=== PATIENT | male | born 1975 | race Caucasian/White ===

== ENCOUNTER 2017-09-10 13:30 | Inpatient (IN) | payer OTHER ==
--- NOTE | 2017-09-08 20:45 | Pre-op HX & Phy Repo 2 SIG ---
DATE OF ADMISSION: 09/11/2017 REASON FOR EVALUATION: This patient is scheduled for surgery on September 11, 2017. CHIEF COMPLAINT: Abdominal pain. HISTORY OF PRESENT ILLNESS: This is a 41-year-old male, who presented with abdominal pain for about 6 months. The pain is located at the epigastrium with radiation to his back. This pain is associated with nausea, but no vomiting. Pain usually gets aggravated a few hours after eating, eating especially greasy food. He stated that the frequency has increased so that now he has the pain 2-3 times a week. Ultrasound had shown gallstone. PAST MEDICAL HISTORY: The patient denied allergies, asthma, diabetes, hypertension, cardiac or renal diseases. PAST SURGICAL HISTORY: Surgeries include repair of the tendon of right finger. MEDICATIONS: Include Rudolph. SOCIAL HISTORY: The patient is a 41-year-old male, who is and father of one child. 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 He denies smoking or drinking. REVIEW OF SYSTEMS: Noncontributory. PHYSICAL EXAMINATION: GENERAL: The patient appeared to be a well-developed, well-nourished, 41-year-old male in no acute distress. VITAL SIGNS: Blood pressure 103/76, pulse is 62. HEENT: Head is normocephalic and atraumatic. Eyes, pupils are equal, round, and reactive to light. Mouth is clear. NECK: There is no palpable thyromegaly or adenopathy. CHEST: Clear to auscultation and percussion. HEART: There is no gallop or murmur. S1 and S2 are within normal limits. ABDOMEN: Soft and flat, not tender. There is no palpable organomegaly. Bowel sounds are audible. GENITAL: Deferred. EXTREMITIES: Within normal limits. DIAGNOSTIC DATA: The ultrasound had shown gallstone located in the neck of the gallbladder. ASSESSMENT: Cholecystitis and cholelithiasis. PLAN: The patient had been scheduled for laparoscopic cholecystectomy, possible open cholecystectomy. The risks and benefits have been explained to him. He understood and granted consent. Emily Torres M.D. DR: Lor JOB#: [id number] CC: AMBROCIO
[~2017-09-10] VITALS: Ht 175.3 cm; Wt 75.3 kg
[2017-09-10] MEDS ORDERED: ZOFRAN4 M3 ORAL (15:21)
[2017-09-10] MEDS ORDERED: MULTIVITAMINS1 EAC2 ORAL (15:21)
[2017-09-10] MEDS ORDERED: LEVSIN-SL0.125 MG SL (15:21)
[2017-09-10] MEDS ORDERED: NORCO 5-325 TA1 EACH ORAL (15:21)
[2017-09-11] VITALS (15 sets, daily range): BP systolic 95–120; BP diastolic 56–79
[2017-09-11] MEDS ORDERED: ceFAZolin sod 1 GM in NS 55 ML IVPB SCH (07:00)
[2017-09-11] MEDS ORDERED: EPINEPHrine 1mg/1ml Amp ONE (11:10)
[2017-09-11] MEDS ORDERED: Iothalamate Meglumine 60% 30ML INJ ONE (11:11)
[2017-09-11] MEDS ORDERED: Bupivacaine 0.25% Inj 30ml INJ ONE (11:11)
[2017-09-11 11:20] LABS: BASOPHILS % (AUTO) 2.3 % (0.0-2.0); EOSINOPHILS % (AUTO) 4.6 % (0.0-3.0); HEMOGLOBIN 16.9 G/DL (14.2-18.0); MEAN CORPUSCULAR VOLUME 87 FL (80-99); MONOCYTES % (AUTO) 7.5 % (1.0-10.0); NEUTROPHILS % (AUTO) 47.6 % (45.0-75.0); PLATELET COUNT 189 K/UL (150-450); RED BLOOD COUNT 5.77 M/UL (4.70-6.10); RED CELL DISTRIBUTION WIDTH 10.4 % (11.6-14.8)
[2017-09-11 11:51] LABS: ALANINE AMINOTRANSFERASE 17 U/L (12-78); ALBUMIN 4.1 G/DL (3.4-5.0); ALBUMIN/GLOBULIN RATIO 1.2 (1.0-2.7); ALKALINE PHOSPHATASE 71 U/L (46-116); ANION GAP 14 mmol/L (5-15); ASPARTATE AMINO TRANSFERASE 21 U/L (15-37); BILIRUBIN,TOTAL 0.5 MG/DL (0.2-1.0); CARBON DIOXIDE 23 MMOL/L (21-32); CHLORIDE 104 MMOL/L (98-107); POTASSIUM 4.2 MMOL/L (3.5-5.1); SODIUM 140 MMOL/L (136-145)
[2017-09-11 11:56] LABS: BLOOD UREA NITROGEN 12 mg/dL (7-18)
[2017-09-11] MEDS ORDERED: Midazolam 2mg/2ml Inj ONE (12:09)
[2017-09-11] MEDS ORDERED: fentaNYL 100 mcg/2 mL IV ONE (12:09)
[2017-09-11] MEDS ORDERED: Propofol 200mg/20ml IV ONE (12:20)
[2017-09-11] MEDS ORDERED: Lidocaine 1% MPF 10mg/ml 5ml ONE (12:20)
[2017-09-11] MEDS ORDERED: Zemuron 50mg/5ml Inj IV ONE (13:24)
[2017-09-11] MEDS ORDERED: LR 1000ml ONE (13:30)
[2017-09-11] MEDS ORDERED: Sterile Water Irrig 1000ml IRRIG ONE (13:30)
[2017-09-11] MEDS ORDERED: Succinylcholine 20mg/ml 10ml vial ONE (13:30)
[2017-09-11] MEDS ORDERED: NS Irrig 1000ml ONE (13:30)
[2017-09-11] MEDS ORDERED: Ketorolac 30mg Inj ONE (13:30)
--- NOTE | 2017-09-11 13:31 | Pre-Procedure Note/Attestation ---
Pre-Procedure Note/Attestation Complete Prior to Procedure Planned Procedure: not applicable Procedure Narrative: laparoscopic cholecystectomy possible open cholecystectomy Indications for Procedure Pre-Operative Diagnosis: cholecystitis & cholelithiasis Attestation I attest that I discussed the nature of the procedure; its benefits; risks and complications; and alternatives (and the risks and benefits of such alternatives ), prior to the procedure, with the patient (or the patient's legal customer retention representative). I attest that, if there was a reasonable possibility of needing a blood transfusion, the patient (or the patient's legal customer retention representative) was given the [facility] standardized written summary, pursuant to the Minh Keisha Blood Safety Act ([place] Health and Safety Code # 1645, as amended). I attest that I re-evaluated the patient just prior to the surgery and that there has been no change in the patient's H&P, except as documented below: Emily Torres MD Sep 11, 2017 13:31
[2017-09-11] MEDS ORDERED: LR 1000ml 1,000 ML IVLG SCH (14:16)
--- NOTE | 2017-09-11 14:16 | Anethesia Preoperative Eval ---
Anesthesia Pre-op PMH/ROS General Date of Evaluation: Sep 11, 2017 Time of Evaluation: 13:16 Anesthesiologist: Lima ASA Score: ASA 2 Mallampati Score Class I : Soft palate, uvula, fauces, pillars visible Class II: Soft palate, uvula, fauces visible Class III: Soft palate, base of uvula visible Class IV: Only hard plate visible Mallampati Classification: Class II Surgeon: Brian Diagnosis: Symptomatic cholelithiasis Surgical Procedure: Laparoscopic cholecystectomy Anesthesia History: none Family History: no anesthesia problems Allergies: Coded Allergies: No Known Allergies (Unverified , 09/10/17) Medications: see eMAR Past Medical History Cardiovascular: Denies: HTN, CAD, AL, valve dz, arrhythmia, other Pulmonary: Denies: asthma, COPD, JOSE MARTIN, other Gastrointestinal/Genitourinary: Reports: GERD, other - recurrent abdominal pain ; Denies: CRI, ESRD Neurologic/Psychiatric: Denies: dementia, CVA, depression/anxiety, TIA, other Endocrine: Denies: DM, hypothyroidism, steroids, other HEENT: Denies: cataract (L), cataract (R), glaucoma, [place] (L), [place] (R), other Hematology/Immune: Denies: anemia, DVT, bleeding disorder, other Musculoskeletal/Integumentary: Denies: OA, RA, DJD, DDD, edema, other PMH Narrative: recurrent abdominal pain nausea PSxH Narrative: Finger tendon repair Anesthesia Pre-op Phys. Exam Physician Exam Last Vital Signs Date Time Temp Pulse Resp B/P (MAP) Pulse Ox O2 Delivery O2 Flow Rate FiO2 09/11/17 10:47 Room Air 09/11/17 10:46 97.5 61 20 111/77 (88) 100 97.5 Constitutional: NAD Neurologic: CN 2-12 intact Cardiovascular: RRR, no M/R/G Respiratory: CTA Gastrointestinal: S/NT/ND Airway Exam Mallampati Score: Class II MO: full Neck: flexible ROM: full Teeth: intact Dentures: no upper, no lower Anesthesia Pre-op A/P Labs Hematology Test 09/11/17 10:45 White Blood Count 5.0 K/UL (4.8-10.8) Red Blood Count 5.77 M/UL (4.70-6.10) Hemoglobin 16.9 G/DL (14.2-18.0) Hematocrit 50.0 % (42.0-52.0) Mean Corpuscular Volume 87 FL (80-99) Mean Corpuscular Hemoglobin 29.4 PG (27.0-31.0) Mean Corpuscular Hemoglobin Concent 33.9 G/DL (32.0-36.0) Red Cell Distribution Width 10.4 % (11.6-14.8) L Platelet Count 189 K/UL (150-450) Mean Platelet Volume 7.1 FL (6.5-10.1) Neutrophils (%) (Auto) 47.6 % (45.0-75.0) Lymphocytes (%) (Auto) 38.0 % (20.0-45.0) Monocytes (%) (Auto) 7.5 % (1.0-10.0) Eosinophils (%) (Auto) 4.6 % (0.0-3.0) H Basophils (%) (Auto) 2.3 % (0.0-2.0) H Coagulation Test 09/11/17 10:45 Prothrombin Time 10.3 SEC (9.30-11.50) Prothromb Time International Ratio 1.0 (0.9-1.1) Activated Partial Thromboplast Time 28 SEC (23-33) Chemistry Test 09/11/17 10:45 Sodium Level 140 MMOL/L (136-145) Potassium Level 4.2 MMOL/L (3.5-5.1) Chloride Level 104 MMOL/L (98-107) Carbon Dioxide Level 23 MMOL/L (21-32) Anion Gap 14 mmol/L (5-15) Blood Urea Nitrogen 12 mg/dL (7-18) Creatinine 1.0 MG/DL (0.55-1.30) Estimat Glomerular Filtration Rate > 60 mL/min (>60) Glucose Level 86 MG/DL (74-106) Calcium Level 9.0 MG/DL (8.5-10.1) Total Bilirubin 0.5 MG/DL (0.2-1.0) Aspartate Amino Transf (AST/SGOT) 21 U/L (15-37) Alanine Aminotransferase (ALT/SGPT) 17 U/L (12-78) Alkaline Phosphatase 71 U/L (46-116) Total Protein 7.6 G/DL (6.4-8.2) Albumin 4.1 G/DL (3.4-5.0) Globulin 3.5 g/dL Albumin/Globulin Ratio 1.2 (1.0-2.7) Studies Pre-op Studies: EKG - NSR Risk Assessment & Plan Assessment: ASA 2 Plan: GA with ETT Status Change Before Surgery: No Pre-Antibiotics Drug: Ancef 1 gr Given Within 1 Hr of Incision: Yes Time Given: 13:45 Willy Amato MD Sep 11, 2017 14:16
[2017-09-11] MEDS ORDERED: Morphine Sulfate 10mg/ml Inj ONE (14:19)
[2017-09-11] MEDS ORDERED: Sodium Chloride 10ml vial INJ ONE (14:21)
[2017-09-11] MEDS ORDERED: Glycopyrrolate 0.2mg/ml 1ml Vial ONE (14:21)
[2017-09-11] MEDS ORDERED: fentaNYL 100 mcg/2 mL IV PRN (14:30)
[2017-09-11] MEDS ORDERED: Metoclopramide 10mg/2ml Inj IVP PRN ×3 (14:30→17:18)
[2017-09-11] MEDS ORDERED: DiphenhydrAMINE 50mg/ml Inj IVP PRN (14:30)
[2017-09-11] MEDS ORDERED: Meperidine 50mg/ml Inj(FOR RIGORS ONLY) IV PRN (14:30)
[2017-09-11] MEDS ORDERED: Ketorolac 30mg Inj IV PRN (14:30)
--- NOTE | 2017-09-11 15:31 | Brief Operative Note ---
Immediate Post Operative Note Operative Note Pre-op Diagnosis: cholecystitis & cholelithiasis Post-op Diagnosis: the same Post-op Diagnosis: same as pre-op Findings: consistent w/pre-op dx studies, other - impacted stone inthe neck Surgeon: MD Mynor Livestock Haulier: none Anesthesiologist: Dr. Amato Anesthesia: general Specimen: yes Complications: none Condition: stable Fluids: per anesthesiologist Estimated Blood Loss: minimal Drains: none Implant(s) used?: No Emily Torres MD Sep 11, 2017 15:31
--- NOTE | 2017-09-11 15:33 | Immediate Post-Op Evaluation ---
Immediate Post-Op Evalulation Immediate Post-Op Evalulation Procedure: Laparoscopic cholecystectomy Date of Evaluation: Sep 11, 2017 Time of Evaluation: 15:32 IV Fluids: 1400 Blood Products: none Estimated Blood Loss: 50 Urinary Output: none Blood Pressure Systolic: 129 Blood Pressure Diastolic: 72 Pulse Rate: 68 Respiratory Rate: 20 O2 Sat by Pulse Oximetry: 99 Temperature (Fahrenheit): 97.7 Pain Score (1-10): 2 Nausea: No Vomiting: No Complications none Patient Status: awake, patent, extubated, none Hydration Status: adequate Willy Amato MD Sep 11, 2017 15:33
[2017-09-11] MEDS ORDERED: Acetaminophen 650 MG SUPP RECTAL PRN (17:17)
[2017-09-11] MEDS ORDERED: Hydromorphone 0.5mg/0.5ml inj IVP PRN (17:17)
[2017-09-11] MEDS: D5 1/2NS w/KCl 20mEq 1,000 ML IV SCH (17:50)
--- NOTE | 2017-09-11 19:00 | Operative Note - Dictated ---
DATE OF OPERATION: 09/11/2017 PREOPERATIVE DIAGNOSIS: Cholecystitis and cholelithiasis. POSTOPERATIVE DIAGNOSIS: Cholecystitis and cholelithiasis. OPERATION: Laparoscopic cholecystectomy and lysis of the adhesion. COMPLICATION: None. SURGEON: Emily Torres M.D. PAPER BAG INSPECTOR: None. ANESTHESIA: General with endotracheal tube. ANESTHESIOLOGIST: Willy Amato M.D. INDICATION: This is a 41-year-old male who presented with abdominal pain for 6 months. The pain is located at the epigastrium and gets aggravated with eating foods, especially greasy food and ultrasound showed cholelithiasis. DESCRIPTION OF PROCEDURE: The patient was placed supine on the operating table and after general anesthesia with endotracheal tube, the abdomen was properly prepped and draped. Initially, a small incision was given below the umbilicus through which a Veress needle was introduced into the intraperitoneal cavity. This cavity was insufflated up to 15 mmHg and then the Veress needle was removed. A 5 mm trocar was placed in the intraperitoneal cavity through the incision below the umbilicus. Laparoscope and camera was introduced into the intraperitoneal cavity through the trocar below the umbilicus. Under direct vision, the working trocar was placed in the epigastrium and 5 mm trocars were placed at right upper quadrant and right flank. Initially, a rapid exploration was performed, which showed the diaphragms to be normal. The part of the stomach and the spleen were normal. The liver was normal. Gallbladder showed signs of chronic cholecystitis with adhesion of omentum at the lower part. The bowels were covered with omentum. The fundus of the gallbladder was grasped with a grasper from the trocar site at the flank and the fundus was retracted cephalad and lateral. Adhesions of the omentum over the lower half of the gallbladder was released and the gallbladder neck was exposed. The patient had a very large stone impacted in the neck. The neck of the gallbladder was grasped with another grasper and blunt dissection at Calot's triangle was performed. The cystic duct and cystic artery were identified and doubly ligated and transected very close to the gallbladder and then after that the gallbladder was gradually released from the gallbladder bed from the neck towards the fundus with the help of the Bovie. The gallbladder was completely removed from the gallbladder bed and the gallbladder was removed from the intraperitoneal cavity through the incision at the epigastrium. To accommodate the size of the gallbladder and specially the stone, we had to extend the incision at epigastrium. After removal of the gallbladder, the right upper quadrant cavity was thoroughly irrigated with antibiotic solution. Another exploration was performed. There was no bleeding or complication. The trocars were removed under direct vision. The incisions were infiltrated with a total of 30 mL of Marcaine 0.25%. The incision on the fascia at the epigastrium was approximated in 2 layers with running suture of #0 Vicryl. The subcutaneous tissue was approximated with 4-0 chromic and the skin incisions were approximated with running subcuticular suture of 4-0 chromic. The patient tolerated the procedure very well and was transferred to recovery room in stable condition and extubated. The sponge and needle count correct. Estimated blood loss 10 mL. Condition of the patient at the end of the procedure was stable. Emily Torres M.D. DR: MORIAH JOB#: [id number] CC:
[2017-09-11] MEDS: ceFAZolin sod 1 GM in D5W 55 ML IV SCH (21:06)
[2017-09-11] MEDS: HYDROmorphone 1mg/ml Carpuject IVP PRN (21:21)
[2017-09-12] VITALS: BP 106/68
[2017-09-12] MEDS: HYDROmorphone 1mg/ml Carpuject IVP PRN ×2 (03:28→10:00)
[2017-09-12] MEDS: D5 1/2NS w/KCl 20mEq 1,000 ML IV SCH (03:48)
[2017-09-12 04:00] VITALS: BP 113/70
[2017-09-12] MEDS: ceFAZolin sod 1 GM in D5W 55 ML IV SCH (05:54)
[2017-09-12 06:46] LABS: EOSINOPHILS % (AUTO) 0.4 % (0.0-3.0); HEMATOCRIT 43.1 % (42.0-52.0); HEMOGLOBIN 14.9 G/DL (14.2-18.0); LYMPHOCYTES % (AUTO) 9.6 % (20.0-45.0); MEAN CORPUSCULAR VOLUME 88 FL (80-99); MONOCYTES % (AUTO) 6.7 % (1.0-10.0); NEUTROPHILS % (AUTO) 82.4 % (45.0-75.0); PLATELET COUNT 163 K/UL (150-450); RED BLOOD COUNT 4.91 M/UL (4.70-6.10); RED CELL DISTRIBUTION WIDTH 10.7 % (11.6-14.8); WHITE BLOOD COUNT 5.4 K/UL (4.8-10.8)
[2017-09-12 07:26] LABS: ALANINE AMINOTRANSFERASE 49 U/L (12-78); ALBUMIN 3.7 G/DL (3.4-5.0); ALBUMIN/GLOBULIN RATIO 1.4 (1.0-2.7); ALKALINE PHOSPHATASE 66 U/L (46-116); ANION GAP 4 mmol/L (5-15); ASPARTATE AMINO TRANSFERASE 41 U/L (15-37); BILIRUBIN,TOTAL 0.7 MG/DL (0.2-1.0); BLOOD UREA NITROGEN 7 mg/dL (7-18); CALCIUM 8.6 MG/DL (8.5-10.1); CARBON DIOXIDE 31 MMOL/L (21-32); CHLORIDE 105 MMOL/L (98-107); POTASSIUM 4.4 MMOL/L (3.5-5.1); SODIUM 140 MMOL/L (136-145)
[2017-09-12 08:00] VITALS: BP 124/82
[2017-09-12] MEDS ORDERED: Pantoprazole Inj IVP SCH (09:00)
--- NOTE | 2017-09-12 10:03 | 48 Hour Post Anesthesia Eval ---
Post Anesthesia Evaluation Procedure: Laparoscopic cholecystectomy Date of Evaluation: Sep 12, 2017 Time of Evaluation: 07:15 Blood Pressure Systolic: 113 0: 70 Pulse Rate: 68 Respiratory Rate: 17 Temperature (Fahrenheit): 97.2 O2 Sat by Pulse Oximetry: 99 Airway: patent Nausea: No Vomiting: No Pain Intensity: 2 Hydration Status: adequate Cardiopulmonary Status: at baseline Mental Status/LOC: patient returned to baseline Post-Anesthesia Complications: 0 Follow-up care needed: N/A - further care as per primary team Ros Simms MD Sep 12, 2017 10:03
[2017-09-12 12:00] VITALS: BP 113/75
--- NOTE | 2017-09-12 14:25 | General Surgery Progress Note ---
General Surgery-Progress Note Objective Last 24 Hour Vital Signs Date Time Temp Pulse Resp B/P (MAP) Pulse Ox O2 Delivery O2 Flow Rate FiO2 09/12/17 12:00 97.3 98 20 113/75 (88) 99 97.3 09/12/17 10:30 97.2 09/12/17 10:03 207.0 68 17 99 09/12/17 09:00 Room Air 09/12/17 08:00 97.6 77 20 124/82 (96) 99 97.6 09/12/17 04:00 97.2 68 17 113/70 (84) 99 97.2 09/12/17 00:00 97.6 89 18 106/68 (81) 95 97.6 09/11/17 21:00 Room Air 09/11/17 20:00 97.2 67 19 95/56 (69) 97 97.2 09/11/17 18:00 98.0 80 18 100/62 (75) 98 98.0 09/11/17 17:30 98.0 74 19 98/60 (73) 99 98.0 09/11/17 17:00 97.9 71 18 96/63 (74) 99 97.9 09/11/17 17:00 Nasal Cannula 2.0 09/11/17 17:00 Nasal Cannula 2.0 09/11/17 16:45 97.6 73 18 102/63 100 Nasal Cannula 3 97.6 09/11/17 16:45 97.6 09/11/17 16:30 73 19 102/62 100 Nasal Cannula 3 09/11/17 16:20 68 19 102/63 100 Nasal Cannula 3 09/11/17 16:10 66 17 104/62 100 Nasal Cannula 3 09/11/17 16:05 72 20 102/68 100 Nasal Cannula 3 09/11/17 15:55 63 22 108/71 100 Nasal Cannula 3 09/11/17 15:53 97.1 09/11/17 15:45 66 21 111/69 100 Simple Mask 6 09/11/17 15:35 75 23 110/76 100 Simple Mask 6 09/11/17 15:33 207.9 68 20 99 09/11/17 15:30 77 22 118/70 100 Simple Mask 6 09/11/17 15:22 97.1 73 20 120/79 100 Simple Mask 6 97.1 I&O Intake and Output 09/11/17 09/12/17 19:00 07:00 Intake Total 1900 ml 1210 ml Output Total 50 ml 600 ml Balance 1850 ml 610 ml Intake Oral 0 ml IV Total 1900 ml 1210 ml Output Urine Total 600 ml Estimated Blood Loss 50 ml Dressing: bloody Drains: none Respiratory: clear Abdomen: soft, flat, tenderness, present bowel sounds Extremities: no tenderness Laboratory Tests Test 09/12/17 06:05 White Blood Count 5.4 K/UL (4.8-10.8) Red Blood Count 4.91 M/UL (4.70-6.10) Hemoglobin 14.9 G/DL (14.2-18.0) Hematocrit 43.1 % (42.0-52.0) Mean Corpuscular Volume 88 FL (80-99) Mean Corpuscular Hemoglobin 30.4 PG (27.0-31.0) Mean Corpuscular Hemoglobin Concent 34.6 G/DL (32.0-36.0) Red Cell Distribution Width 10.7 % (11.6-14.8) L Platelet Count 163 K/UL (150-450) Mean Platelet Volume 6.9 FL (6.5-10.1) Neutrophils (%) (Auto) 82.4 % (45.0-75.0) H Lymphocytes (%) (Auto) 9.6 % (20.0-45.0) L Monocytes (%) (Auto) 6.7 % (1.0-10.0) Eosinophils (%) (Auto) 0.4 % (0.0-3.0) Basophils (%) (Auto) 1.0 % (0.0-2.0) Sodium Level 140 MMOL/L (136-145) Potassium Level 4.4 MMOL/L (3.5-5.1) Chloride Level 105 MMOL/L (98-107) Carbon Dioxide Level 31 MMOL/L (21-32) Anion Gap 4 mmol/L (5-15) L Blood Urea Nitrogen 7 mg/dL (7-18) Creatinine 1.0 MG/DL (0.55-1.30) Estimat Glomerular Filtration Rate > 60 mL/min (>60) Glucose Level 133 MG/DL (74-106) H Calcium Level 8.6 MG/DL (8.5-10.1) Total Bilirubin 0.7 MG/DL (0.2-1.0) Aspartate Amino Transf (AST/SGOT) 41 U/L (15-37) H Alanine Aminotransferase (ALT/SGPT) 49 U/L (12-78) Alkaline Phosphatase 66 U/L (46-116) Total Protein 6.4 G/DL (6.4-8.2) Albumin 3.7 G/DL (3.4-5.0) Globulin 2.7 g/dL Albumin/Globulin Ratio 1.4 (1.0-2.7) Assessment Post-op Diagnosis the same Additional Comments S/P lap larry Plan Additional Comments Discharge to home Emily Torres MD Sep 12, 2017 14:25
--- NOTE | 2017-09-12 14:27 | Discharge Instructions ---
Discharge Instructions Discharge Instructions Follow up with: my office in one week Diet: full liquid, other - low fat regular as of tomorrow Resume Normal Activity?: Yes Activity: as tolerated For Surgical Patients May shower: Yes For Congestive Heart Failure Reminder Report to your physician any weight gain of 5 pounds or more in one week. Emily Torres MD Sep 12, 2017 14:27
[2017-09-12] MEDS ORDERED: TRAMADOL HCL50 MG ORAL (14:34)
[2017-09-12] MEDS ORDERED: CEPHALEXIN500 MG ORAL (14:34)
[2017-09-12] MEDS ORDERED: COLACE100 MG ORAL (14:35)
[2017-09-12] MEDS ORDERED: PERI-COLACE1 EA ORAL (14:38)
[2017-09-12] MEDS ORDERED: Tubing IV Secondary IV ONE (15:59)
--- NOTE | 2017-09-14 14:28 | Cardiology Report ---
APPROVED REPORT EKG Measurement Heart [id number] Sinus bradycardia Otherwise normal ECG
--- NOTE | 2017-09-15 12:14 | Discharge Summary ---
Discharge Summary Hospital Course Date of Admission Sep 11, 2017 at 10:24 Date of Discharge Sep 12, 2017 at 16:00 Admitting Diagnosis Cholelithiasis, cholecystitis Reason for Hospitalization: Surgery HPI Akil Loera is a 41 year old male who was admitted on Sep 11, 2017 at 10:24 for Cholecystitis and Cholelithiasis. Patient admitted for surgical intervention. Procedures s/p 09/11/[address] Torres lap cholecystectomy with lysis of adhesions Hospital Course s/p surgery initially IV fluids until [id number] diet perioperative antibiotic given pain management addressed dressing changed abdomen soft ,bowel sounds present tolerated diet voided freely ambulated stable for discharge home discharge instruction provided outpatient follow-up with surgeon as advised FINAL DIAGNOSES cholelithiasis cholecystitis s/p lap cholecystectomy with lysis of adhesions Discharge Medications Continued Medications: Cephalexin* (Keflex*) 500 Mg Capsule 500 MG ORAL EVERY 6 HOURS, #20 CAP (This prescription has been renewed) Docusate Sod/Senna (Docusate Sodium-Senna Tablet) 1 Each Tablet 1 CAP ORAL TID PRN for Constipation, #20 CAP 0 Refills (This prescription has been renewed) Tramadol Hcl* (Ultram*) 50 Mg Tablet 50 MG ORAL Q6H PRN for For Pain, #20 TAB 0 Refills (This prescription has been renewed) Discharge Condition Upon Discharge: stable Discharge Disposition Patient was discharged to Home (01) Discharge Instructions Discharge Instructions Follow up with: my office in one week Activity: as tolerated Special Instructions I have been assigned to complete a D/C Summary on this account. I was not involved in the patient management For Surgical Patients May shower: Yes Judith Joyce NP Sep 15, 2017 12:13
== END 2017-09-12 16:00 | disposition home or self-care (01) | DRG 419 ==
LOC: SDSOVERFLO 09-11 10:24 → 3E 09-11 17:00
PROC: 0FT44ZZ Resection of Gallbladder, Percutaneous Endoscopic Approach (ICD-10-PCS; principal; 2017-09-11 13:30)
DX: K80.10 Calculus of gallbladder with chronic cholecystitis without obstruction (principal)
CPT/HCPCS: 36415; 80053; 85025; 85610; 85730; 87081; 93005; 94003; 94150; J2250; J2405; J2765